=== PATIENT | male | born 1970 | race Caucasian/White ===

== ENCOUNTER → 2016-12-29 | Outpatient (CLI) | payer OTHER ==
[2016-12-29 10:33] LABS: CHCM 33.8; HCT 48.5 % (39.0-53.0); HDW 2.51; HGB 16.3 gm/dL (13.0-17.5); MCH 30.9 pg (25.0-35.0); MCHC 33.5 g/dL (31.0-37.0); MCV 92.2 fL (80.0-100.0); Mean Platelet Volume 6.9; RBC 5.26 m/uL (4.30-5.90); RDW 12.7 % (11.5-15.5); WBC 8.5 k/uL (3.8-10.6)
== END | disposition home or self-care (01) ==
LOC: LABWHC1 09:44
PROVIDERS: ATTEND Internal Medicine Endocrinology, Diabetes & Metabolism
DX: E29.1 Testicular hypofunction (principal)
CPT/HCPCS: 36415; 84403; 85027

== ENCOUNTER → 2017-01-03 | Outpatient (CLI) | payer OTHER ==
[2017-01-03 08:04] LABS: ALT 68 U/L (21-72); AST 37 U/L (17-59); Alkaline Phosphatase 65 U/L (38-126); Anion Gap 10 mmol/L; Blood Urea Nitrogen 12 mg/dL (9-20); Calcium 9.5 mg/dL (8.4-10.2); Carbon Dioxide 25 mmol/L (22-30); Chloride 107 mmol/L (98-107); Cholesterol 132 mg/dL (<200); Glucose 98 mg/dL (74-99); HDL Cholesterol 41 mg/dL (40-60); Non-African American GFR(MDRD) >60 (>60 ml/min/1.73 sqM); Potassium 4.7 mmol/L (3.5-5.1); Sodium 142 mmol/L (137-145); Total Bilirubin 0.8 mg/dL (0.2-1.3); Total Protein 6.8 g/dL (6.3-8.2); Triglycerides 155 mg/dL (<150)
== END | disposition home or self-care (01) ==
LOC: LABWHC1 07:01
PROVIDERS: ATTEND Family Medicine
DX: Z00.00 Encounter for general adult medical examination without abnormal findings (principal)
CPT/HCPCS: 36415; 80053; 80061

== ENCOUNTER → 2017-03-16 | Outpatient (CLI) | payer OTHER ==
--- NOTE | 2017-03-16 09:34 | CT ---
EXAMINATION TYPE: CT sinus wo con DATE OF EXAM: 03/16/2017 8:44 AM COMPARISON: NONE HISTORY: 46-year-old male complains of chronic sinus drainage and cough. CT DLP: 622 mGycm Automated exposure control for dose reduction was used. TECHNIQUE: Noncontrast axial views of the paranasal sinuses were obtained. Coronal with reconstructio ns performed. FINDINGS: Similar scattered mild mucosal thickening within the bilateral maxillary sinuses. The remaining paran puneet sinuses appear clear. There is no air-fluid level. Reactive alexander- osteogenesis is not seen. There is no destruction of the osseous sanchez of the paranasal sinuses. Mucosal thickening similarly narrows the left maxillary antrum but the osteomeatal complexes are lucas nt. 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 The imaged brain, sella, skull base and orbits are normal in appearance. Mastoid air cells and middle ear cavities are well pneumatized. Reformatted images confirm above findings. IMPRESSION: Overall stable mild chronic maxillary sinus disease.
== END | disposition home or self-care (01) ==
LOC: RADCTMAIN 08:21
PROVIDERS: ATTEND Internal Medicine
DX: J34.89 Other specified disorders of nose and nasal sinuses (principal)
CPT/HCPCS: 70486

== ENCOUNTER → 2017-05-03 | Outpatient (CLI) | payer OTHER ==
[2017-05-03 07:33] LABS: CH 30.7; CHCM 32.6; HCT 53.8 % (39.0-53.0); HDW 2.45; HGB 17.6 gm/dL (13.0-17.5); MCH 30.9 pg (25.0-35.0); MCHC 32.6 g/dL (31.0-37.0); MCV 94.7 fL (80.0-100.0); Mean Platelet Volume 6.7; RBC 5.68 m/uL (4.30-5.90); RDW 13.6 % (11.5-15.5)
== END | disposition home or self-care (01) ==
LOC: LABWHC1 06:57
PROVIDERS: ATTEND Internal Medicine Endocrinology, Diabetes & Metabolism
DX: E29.1 Testicular hypofunction (principal)
CPT/HCPCS: 36415; 84403; 85027

== ENCOUNTER → 2017-09-04 | Outpatient (CLI) | payer OTHER ==
[2017-09-04 17:41] LABS: CH 31.9; CHCM 34.3; HCT 52.2 % (39.0-53.0); HDW 2.44; HGB 17.5 gm/dL (13.0-17.5); MCH 31.4 pg (25.0-35.0); MCHC 33.6 g/dL (31.0-37.0); MCV 93.4 fL (80.0-100.0); Mean Platelet Volume 7.1; RBC 5.59 m/uL (4.30-5.90); RDW 14.9 % (11.5-15.5); WBC 8.1 k/uL (3.8-10.6)
== END | disposition home or self-care (01) ==
LOC: LABWHC1 17:24
PROVIDERS: ATTEND Internal Medicine Endocrinology, Diabetes & Metabolism
DX: E29.1 Testicular hypofunction (principal)
CPT/HCPCS: 36415; 84153; 84403; 85027

== ENCOUNTER → 2017-09-14 | Outpatient (CLI) | payer OTHER | END | disposition home or self-care (01) | LOC: LABWHC1 07:05 | PROVIDERS: ATTEND Family Medicine | DX: R97.20 Elevated prostate specific antigen [PSA] (principal) | CPT/HCPCS: 36415; 84153; 84154 ==

== ENCOUNTER → 2018-01-12 | Outpatient (CLI) | payer OTHER ==
[2018-01-12 16:59] LABS: HCT 49.3 % (39.0-53.0); HGB 15.3 gm/dL (13.0-17.5); MCHC 31.1 g/dL (31.0-37.0); MCV 96.4 fL (80.0-100.0); Mean Platelet Volume 6.9; Platelet Count 260 k/uL (150-450); RBC 5.11 m/uL (4.30-5.90); RDW 13.7 % (11.5-15.5); WBC 8.4 k/uL (3.8-10.6)
== END | disposition home or self-care (01) ==
LOC: LABWHC1 16:18
PROVIDERS: ATTEND Internal Medicine Endocrinology, Diabetes & Metabolism
DX: E29.1 Testicular hypofunction (principal)
CPT/HCPCS: 36415; 84153; 84403; 85027

== ENCOUNTER → 2018-06-28 | Outpatient (CLI) | payer OTHER ==
[2018-06-28 17:46] LABS: HCT 52.6 % (39.0-53.0); HGB 17.4 gm/dL (13.0-17.5); MCH 29.8 pg (25.0-35.0); MCV 90.3 fL (80.0-100.0); Platelet Count 268 k/uL (150-450); RBC 5.83 m/uL (4.30-5.90); RDW 12.9 % (11.5-15.5); WBC 10.3 k/uL (3.8-10.6)
== END | disposition home or self-care (01) ==
LOC: LABWHC1 16:52
PROVIDERS: ATTEND Internal Medicine Endocrinology, Diabetes & Metabolism
DX: E29.1 Testicular hypofunction (principal)
CPT/HCPCS: 36415; 84153; 84403; 85027

== ENCOUNTER → 2018-07-07 | Outpatient (CLI) | payer OTHER ==
[2018-07-07 10:11] LABS: T4, Free (Free Thyroxine) 0.8 ng/dL (0.78-2.19)
== END | disposition home or self-care (01) ==
LOC: LABWHC1 08:02
PROVIDERS: ATTEND Internal Medicine Endocrinology, Diabetes & Metabolism
DX: E78.2 Mixed hyperlipidemia (principal); R23.2 Flushing; R42 Dizziness and giddiness; R53.83 Other fatigue
CPT/HCPCS: 36415; 80061; 82533; 84439; 84443; 84481

== ENCOUNTER → 2018-10-16 | Outpatient (CLI) | payer OTHER ==
[2018-10-16 12:12] LABS: HCT 49.5 % (39.0-53.0); HGB 16.7 gm/dL (13.0-17.5); MCHC 33.7 g/dL (31.0-37.0); MCV 92.1 fL (80.0-100.0); Mean Platelet Volume 6.7; Platelet Count 279 k/uL (150-450); RBC 5.37 m/uL (4.30-5.90); RDW 13.7 % (11.5-15.5); WBC 9.7 k/uL (3.8-10.6)
[2018-10-16 12:21] LABS: Appearance,Urine Clear (Clear); Bilirubin,Urine Negative (Negative); Blood,Urine Negative (Negative); Color,Urine Yellow; Glucose,Urine (UA) Negative (Negative); Ketones,Urine Negative (Negative); Leukocyte Esterase,Urine Negative (Negative); Nitrite,Urine Negative (Negative); Protein,Urine Negative (Negative); Specific Gravity,Urine 1.016 (1.001-1.035); Urobilinogen,Urine <2.0 mg/dL (<2.0)
[2018-10-16 12:28] LABS: INR 1.1 (<1.2); Partial Thromboplastin Time 24.1 sec (22.0-30.0); Prothrombin Time 10.5 sec (9.0-12.0)
[2018-10-16 21:47] LABS: Anion Gap 7.8 mmol/L (4.00-12.00); Calcium 9.2 mg/dL (8.7-10.3); Carbon Dioxide 27.2 mmol/L (21.6-31.8)
== END ==
LOC: LABWHC1 11:38
PROVIDERS: ATTEND Orthopaedic Surgery
DX: Z01.812 Encounter for preprocedural laboratory examination (principal); M12.9 Arthropathy, unspecified; D64.9 Anemia, unspecified; N39.0 Urinary tract infection, site not specified
CPT/HCPCS: 36415; 80048; 81003; 85027; 85610; 85730; 87070; 87086

== ENCOUNTER → 2018-12-12 | Outpatient (CLI) | payer OTHER ==
[2018-12-12 12:00] LABS: HCT 53.3 % (39.0-53.0); HGB 17.8 gm/dL (13.0-17.5); MCHC 33.3 g/dL (31.0-37.0); MCV 96.3 fL (80.0-100.0); Mean Platelet Volume 6.5; Platelet Count 288 k/uL (150-450); RBC 5.54 m/uL (4.30-5.90); RDW 13.4 % (11.5-15.5); WBC 8.1 k/uL (3.8-10.6)
== END | disposition home or self-care (01) ==
LOC: LABWHC1 10:58
PROVIDERS: ATTEND Internal Medicine Endocrinology, Diabetes & Metabolism
DX: E29.1 Testicular hypofunction (principal)
CPT/HCPCS: 36415; 84153; 84403; 85027

== ENCOUNTER → 2019-04-10 | Outpatient (CLI) | payer OTHER ==
[2019-04-10 15:51] LABS: HCT 44.3 % (39.0-53.0); HGB 14.8 gm/dL (13.0-17.5); MCH 30.2 pg (25.0-35.0); MCHC 33.4 g/dL (31.0-37.0); MCV 90.3 fL (80.0-100.0); Mean Platelet Volume 6.9; Platelet Count 287 k/uL (150-450); RDW 14.2 % (11.5-15.5); WBC 9.2 k/uL (3.8-10.6)
== END | disposition home or self-care (01) ==
LOC: LABWHC1 15:18
PROVIDERS: ATTEND Internal Medicine Endocrinology, Diabetes & Metabolism
DX: E29.1 Testicular hypofunction (principal)
CPT/HCPCS: 36415; 84153; 84403; 85027

== ENCOUNTER 2019-05-05 14:28 | Emergency (ER) | payer OTHER ==
[2019-05-05 14:58] VITALS: RESP 18; TEMP 98.2
[2019-05-05] MEDS ORDERED: CEPHALEXIN 500 MG CAP PO STA (15:25)
--- NOTE | 2019-05-05 16:03 | XR ---
EXAMINATION TYPE: XR forearm RT DATE OF EXAM: 05/05/2019 COMPARISON: NONE HISTORY: Pain TECHNIQUE: 2 views FINDINGS: There is narrowing of radiocarpal joint space. Elbow joint appears intact. I see no fractur e nor dislocation. IMPRESSION: Osteoarthritis of the wrist joint. No fracture seen. Posterior soft tissue swelling noted over the proximal ulna.
--- NOTE | 2019-05-05 16:04 | XR ---
EXAMINATION TYPE: XR chest 2V DATE OF EXAM: 05/05/2019 COMPARISON: 03/01/2017 HISTORY: Pain TECHNIQUE: Frontal and lateral views of the chest are obtained. FINDINGS: Heart and mediastinum are normal. Lungs are clear of consolidation. There is no pleural ef fusion. Bony thorax is intact. IMPRESSION: No active cardiopulmonary disease. Normal heart. No change.
--- NOTE | 2019-05-05 16:14 | XR ---
EXAMINATION TYPE: XR tibia fibula RT DATE OF EXAM: 05/05/2019 COMPARISON: NONE HISTORY: Leg pain TECHNIQUE: 3 views FINDINGS: Tibia and fibula appear intact. There is old reconstructive surgery at the knee. Ankle join t is anatomic. I see no fracture. IMPRESSION: No acute abnormality of the right lower leg.
[2019-05-05] MEDS ORDERED: ACETAMINOPHEN TAB 325 MG TAB PO STA (16:15)
--- NOTE | 2019-05-05 16:15 | XR ---
EXAMINATION TYPE: XR femur RT DATE OF EXAM: 05/05/2019 COMPARISON: NONE HISTORY: Leg pain TECHNIQUE: 4 views FINDINGS: I see no fracture nor dislocation. Hip joint is intact. Knee joint is intact. IMPRESSION: Negative right femur exam.
--- NOTE | 2019-05-05 16:15 | XR ---
EXAMINATION TYPE: XR cervical spine comp DATE OF EXAM: 05/05/2019 COMPARISON: NONE HISTORY: Pain TECHNIQUE: 5 views FINDINGS: Vertebra have normal alignment. Posterior elements are intact. There is hypertrophic spurri ng anteriorly from C3 to C7. There is narrowing of neural foramina due to multilevel uncovertebral sp ur formation. There are no cervical ribs. IMPRESSION: Multilevel spondylosis and neural foraminal impingement. No fracture.
--- NOTE | 2019-05-05 16:49 | ED ---
General Adult HPI - General Chief complaint: Trauma Stated complaint: Tree fell on pt/ arm and leg injuries Time Seen by Provider: 05/05/19 15:00 Source: patient, RN notes reviewed, old records reviewed Mode of arrival: wheelchair Limitations: no limitations - History of Present Illness Initial comments: 48-year-old male patient presents ED chief complaint was for branch falling on him. Patient reports that he was outside working on his lawnmower when he heard a crack and then a large treatment approximately T4 today and fell down striking his right upper extremity, right lower extremity. Patient denies any trauma to head or neck. Denies any abdominal pain, headache, pain in neck, nausea vomiting or diarrhea. Patient in further difficulty. Patient chief complaint is superficial abrasions on right upper and right lower extremity, pain in right forearm region. Patient denies any other complaints at this time. Systemic: Pt denies fatigue, fever/chills, rash. Pt denies weakness, night sweats, weight loss. Neuro: Pt denies headache, visual disturbances, syncope or pre-syncope. HEENT: Pt denies ocular discharge or irritation, otalgia, rhinorrhea, pharyngitis or notable lymphadenopathy. Cardiopulmonary: Pt denies chest pain, SOB, heart palpitations, dyspnea on exertion. Abdominal/GI: Pt denies abdominal pain, n/v/d. : Pt denies dysuria, burning w/ urination, frequency/urgency. Denies new onset urinary or bowel incontinence. MSK: Pt denies myalgia, loss of strength or function in extremities. Neuro: Pt denies new onset weakness, paresthesias. - Related Data Home Medications Medication Instructions Recorded Confirmed Multivitamins, Thera [Multivitamin 1 each PO DAILY 11/17/14 11/23/15 (formulary)] Osteo Bioflex 400 mg PO DAILY 11/17/14 11/23/15 Meclizine HCl 25 mg PO TID PRN 11/23/15 11/23/15 Metoprolol Succinate (ER) [Toprol 25 mg PO DAILY 11/23/15 11/30/15 Xl] buPROPion SR [Wellbutrin Sr] 150 mg PO TID 11/23/15 11/23/15 Previous Rx's Medication Instructions Recorded Cephalexin [Keflex] 500 mg PO Q12HR 7 Days #14 cap 06/09/19 Allergies Allergy/AdvReac Type Severity Reaction Status Date / Time etodolac [From Lodine] Allergy MUSCLE Verified 05/05/19 14:57 CRAMPS TO BACK OF HEAD AND NECK montelukast sodium Allergy Itching Verified 05/05/19 14:57 [From Singulair] Penicillins Allergy Unknown Verified 05/05/19 14:57 Childhood codeine AdvReac Nausea & Verified 05/05/19 14:57 Vomiting DUST AND POLLEN Allergy Mild SINUS Uncoded 05/05/19 14:57 CONGESTION STRESS TEST DYE Allergy Nausea,LIGHTHEADED,HOT Uncoded 05/05/19 14:57 FLUSHING,CARMONA Review of Systems ROS Statement: Those systems with pertinent positive or pertinent negative responses have been documented in the HPI. ROS Other: All systems not noted in ROS Statement are negative. Past Medical History Past Medical History: Asthma, GERD/Reflux Additional Past Medical History / Comment(s): SEE DR COELHO'S H&P,FREQ DIZZINESS WITH ACTIVITY AND WITHOUT ACTIVITY,KIDNEY STONES,UTI'S,LAST DOSE PREDNISONE 11-23-15 FOR TX 50 DAY COURSE FOR RADS. History of Any Multi-Drug Resistant Organisms: None Reported Past Surgical History: Adenoidectomy, Tonsillectomy Additional Past Surgical History / Comment(s): rt ACL and meniscus repair, lt meniscus repair, hand Past Anesthesia/Blood Transfusion Reactions: Motion Sickness, Postoperative Nausea & Vomiting (PONV) Past Psychological History: ADD/ADHD Smoking Status: Never smoker Past Alcohol Use History: None Reported Past Drug Use History: None Reported - Past Family History Mother Additional Family Medical History / Comment(s): osteoporosis, abd adhesions Father Family Medical History: AFIB Sister(s) Family Medical History: Diabetes Mellitus Additional Family Medical History / Comment(s): paralysis with injury General Exam - General Exam Comments Initial Comments: Constitutional: NAD, AOX3, Pt has pleasant affect. HEENT: NC/AT, trachea midline, neck supple, no lymphadenopathy. Posterior pharynx non erythematous, without exudates. External ears appear normal, without discharge. Mucous membranes moist. Eyes PERRLA, EOM intact. There is no scleral icterus. No pallor noted. Cardiopulmonary: RRR, no murmurs, rubs or gallops, no JVD noted. Lungs CTAB in anterior and posterior dunham. No peripheral edema. Abdominal exam: Abdomen soft and non-distended. Abdomen non-tender to palpation in all 4 quadrants. Bowel sounds active in LLQ. No hepatosplenomegaly. No ecchymosis. No guarding no rigidity. Neuro: CN II-XII intact. No nuchal rigidity. No raccon eyes, no lerma sign, no hemotympanum. No cervical spinal tenderness. MSK: Superficial abrasions noted on right upper and right lower extremity. Mild soft tissue swelling noted on right forearm region. [place] forearm mildly tender to palpation. posterior calf tenderness bilaterally, homans sign negative bilaterally. Posterior tibialis and radial pulse +2 bilaterally. Sensation intact in upper and lower extremities. Full active ROM in upper and lower extremities, 5/5 stregnth. Ulnar gutter splint placed, patient neurovascularly intact after splint placement. Limitations: no limitations Course Vital Signs 05/05/19 14:55 Temperature 98.2 F Pulse Rate 65 Respiratory 18 Rate Blood Pressure 127/86 O2 Sat by Pulse 98 Oximetry Medical Decision Making - Medical Decision Making 48-year-old male patient presents ED chief complaint was for branch falling on him. Patient reports that he was outside working on his lawnmower when he heard a crack and then a large treatment approximately T4 today and fell down striking his right upper extremity, right lower extremity. Patient denies any trauma to head or neck. Examination of the abdominal pain, headache, pain in neck, nausea vomiting or diarrhea. Patient in further difficulty. Patient chief complaint is superficial abrasions on right upper and right lower extremity, pain in right forearm region. Patient denies any other complaints at this time. Patient was sent stable, afebrile. Physical exam displayed: CN II-XII intact. No nuchal rigidity. No raccon eyes, no lerma sign, no hemotympanum. No cervical spinal tenderness. uperficial abrasions noted on right upper and right lower extremity. Mild soft tissue swelling noted on right forearm region. [place] forearm mildly tender to palpation. posterior calf tenderness bilaterally, homans sign negative bilaterally. Posterior tibialis and radial pulse +2 bilaterally. Sensation intact in upper and lower extremities. Full active ROM in upper and lower extremities, 5/5 stregnth. Plain film of chest, femur, tibia-fibula didn't display acute pathology. Forearm plain films displayed mild soft tissue sw elling over proximal ulna. Cervical spine displayed no acute process, multilevel spondylolysis and neural foraminal impingement. No fracture. Abrasions cleaned in ED. Pt placed in R ulnar gutter splint. Pt will f/u with PCP and orthopedic consult in 1-2 days. Patient will be discharged on Keflex. Tetanus up-to-date. Patient returned irritation worsen. Case discussed and patient seen by Dr. Conde. Disposition Clinical Impression: Abrasion, Trauma Disposition: HOME SELF-CARE Condition: Stable Instructions (If sedation given, give patient instructions): Abrasion (ED) Additional Instructions: Patient to adhere to previously discussed treatment plan and will take medication(s) as directed. Patient to follow up with PCP in 1-2 days. Patient to return to ED if symptoms do not improve. Follow-up with primary care provider and orthopedic consult in 1-2 days. Return to ER if worsen anyway. Prescriptions: Cephalexin [Keflex] 500 mg PO Q12HR 7 Days #14 cap Is patient prescribed a controlled substance at d/c from ED?: No Referrals: Isacc Porter MD [Primary Care Provider] - 1-2 days Sivakumar Gillis MD [STAFF PHYSICIAN] - 1-2 days
[2019-05-05 17:27] VITALS: BP 135/79; PULSE 62
== END 2019-05-05 17:24 | disposition home or self-care (01) ==
LOC: EC 14:28
DX: S40.811A Abrasion of right upper arm, initial encounter (principal); S80.811A Abrasion, right lower leg, initial encounter; F90.9 Attention-deficit hyperactivity disorder, unspecified type; Z79.899 Other long term (current) drug therapy; Z88.0 Allergy status to penicillin; Z88.5 Allergy status to narcotic agent; Z88.4 Allergy status to anesthetic agent; Z88.8 Allergy status to other drugs, medicaments and biological substances; Z91.048 Other nonmedicinal substance allergy status; W20.8XXA Other cause of strike by thrown, projected or falling object, initial encounter; Y93.89 Activity, other specified; Y92.89 Other specified places as the place of occurrence of the external cause
CPT/HCPCS: 29125; 71046; 72050; 99284

== ENCOUNTER → 2019-08-23 | Outpatient (CLI) | payer OTHER ==
[2019-08-23 17:43] LABS: HCT 40.9 % (39.0-53.0); HGB 14.3 gm/dL (13.0-17.5); MCH 31.1 pg (25.0-35.0); MCHC 34.8 g/dL (31.0-37.0); MCV 89.3 fL (80.0-100.0); Platelet Count 310 k/uL (150-450); RBC 4.59 m/uL (4.30-5.90); RDW 11.9 % (11.5-15.5); WBC 7.6 k/uL (3.8-10.6)
== END | disposition home or self-care (01) ==
LOC: LABWHC1 16:43
PROVIDERS: ATTEND Internal Medicine Endocrinology, Diabetes & Metabolism
DX: E29.1 Testicular hypofunction (principal)
CPT/HCPCS: 36415; 84153; 84403; 85027

== ENCOUNTER → 2020-02-08 | Outpatient (CLI) | payer OTHER ==
[2020-02-08 11:36] LABS: HCT 44.8 % (39.0-53.0); HGB 15.1 gm/dL (13.0-17.5); MCH 30.7 pg (25.0-35.0); MCHC 33.6 g/dL (31.0-37.0); MCV 91.3 fL (80.0-100.0); Mean Platelet Volume 7.5; Platelet Count 291 k/uL (150-450); RBC 4.91 m/uL (4.30-5.90); RDW 12.7 % (11.5-15.5); WBC 6.5 k/uL (3.8-10.6)
[2020-02-08 17:37] LABS: Luteinizing Hormone 1.4 mIU/mL
== END | disposition home or self-care (01) ==
LOC: LABWHC1 10:04
PROVIDERS: ATTEND Internal Medicine Endocrinology, Diabetes & Metabolism
DX: E29.1 Testicular hypofunction (principal)
CPT/HCPCS: 36415; 83002; 84153; 84403; 85027

== ENCOUNTER → 2020-06-08 | Outpatient (CLI) | payer OTHER ==
[2020-06-08 15:57] LABS: HCT 44.3 % (39.0-53.0); HGB 15.1 gm/dL (13.0-17.5); MCH 31.3 pg (25.0-35.0); MCHC 33.9 g/dL (31.0-37.0); MCV 92.2 fL (80.0-100.0); Mean Platelet Volume 7.4; Platelet Count 264 k/uL (150-450); RBC 4.81 m/uL (4.30-5.90); RDW 12.7 % (11.5-15.5); WBC 8.6 k/uL (3.8-10.6)
[2020-06-09 02:15] LABS: African American GFR (CKD) 101.3 (60.0-200.0); Albumin 4.5 g/dL (3.80-4.90); Albumin/Globulin Ratio 2.65 (1.60-3.17); Anion Gap 3.2 mmol/L (4.00-12.00); Calcium 9.6 mg/dL (8.7-10.3); Carbon Dioxide 28.8 mmol/L (21.6-31.8); Globulin 1.7 g/dL (1.6-3.3); Non-African American GFR(CKD) 87.4 (60.0-200.0); Potassium 4.1 mmol/L (3.5-5.5); Total Bilirubin 0.7 mg/dL (0.3-1.2); Total Protein 6.2 g/dL (6.2-8.2)
== END | disposition home or self-care (01) ==
LOC: LABWHC1 14:55
PROVIDERS: ATTEND Family Medicine
DX: Z00.01 Encounter for general adult medical examination with abnormal findings (principal); E29.1 Testicular hypofunction
CPT/HCPCS: 36415; 80053; 84403; 85027

== ENCOUNTER → 2020-09-22 | Outpatient (CLI) | payer OTHER ==
[2020-09-22 17:19] LABS: Basophils # (A) 0.1 k/uL (0-0.2); Basophils % (A) 1 %; Eosinophils # (A) 0.4 k/uL (0-0.7); Eosinophils % (A) 4 %; Lymphocytes # (A) 1.8 k/uL (1.0-4.8); Lymphocytes % (A) 17 %; MCH 29.7 pg (25.0-35.0); MCHC 31.9 g/dL (31.0-37.0); MCV 93.3 fL (80.0-100.0); Mean Platelet Volume 6.9; Monocytes # (A) 0.6 k/uL (0-1.0); Monocytes % (A) 6 %; Neutrophils % (A) 72 %; Platelet Count 332 k/uL (150-450); RBC 5.04 m/uL (4.30-5.90); RDW 13.3 % (11.5-15.5); WBC 11.1 k/uL (3.8-10.6)
[2020-09-22 17:29] LABS: Total Eosinophil Count 444 #EOS/uL (150-300)
== END | disposition home or self-care (01) ==
LOC: LABWHC1 16:08
PROVIDERS: ATTEND Internal Medicine
DX: J45.50 Severe persistent asthma, uncomplicated (principal)
CPT/HCPCS: 36415; 82785; 85008; 85025

== ENCOUNTER → 2021-05-04 | Outpatient (CLI) | payer OTHER ==
[2021-05-04 23:09] LABS: HCT 43.5 % (39.6-50.0); HGB 14.4 g/dL (13.0-17.0); MCH 30.3 pg (27.0-32.0); MCHC 33.1 g/dL (32.0-37.0); MCV 91.4 fL (80.0-97.0); Mean Platelet Volume 10.1 fL (9.5-12.2); Platelet Count 263 X 10*3/uL (140-440); RBC 4.76 X 10*6/uL (4.40-5.60); RDW 12.8 % (11.5-14.5); WBC 7.59 X 10*3/uL (4.50-10.00)
[2021-05-05 05:57] LABS: Prostate Specific Antigen 4.8 ng/mL (0.0-3.5)
== END | disposition home or self-care (01) ==
LOC: LABWHC1 16:03
PROVIDERS: ATTEND Internal Medicine Endocrinology, Diabetes & Metabolism
DX: E29.1 Testicular hypofunction (principal)
CPT/HCPCS: 36415; 84153; 84403; 85027

== ENCOUNTER → 2021-10-25 | Outpatient (CLI) | payer OTHER ==
[2021-10-25 23:25] LABS: HCT 43.9 % (39.6-50.0); HGB 14.5 g/dL (13.0-17.0); MCH 29.2 pg (27.0-32.0); MCV 88.5 fL (80.0-97.0); Mean Platelet Volume 10.1 fL (9.5-12.2); Platelet Count 277 X 10*3/uL (140-440); RBC 4.96 X 10*6/uL (4.40-5.60); RDW 13.6 % (11.5-14.5); WBC 9.14 X 10*3/uL (4.50-10.00)
[2021-10-26 02:21] LABS: Prostate Specific Antigen 5.7 ng/mL (0.00-3.50)
== END | disposition home or self-care (01) ==
LOC: LABWHC1 14:59
PROVIDERS: ATTEND Internal Medicine Endocrinology, Diabetes & Metabolism
DX: E29.1 Testicular hypofunction (principal)
CPT/HCPCS: 36415; 84153; 84403; 85027

== ENCOUNTER 2021-11-19 05:42 | Inpatient (IN) | payer OTHER ==
[2021-11-19] MEDS ORDERED: ACETAMINOPHEN TAB 500 MG TAB PO STA (06:18)
[2021-11-19] MEDS ORDERED: IBUPROFEN 600 MG TAB PO STA (06:18)
[2021-11-19] MEDS ORDERED: DEXAMETHASONE SOD PHOSPHATE 10 MG/ML 1 ML VIAL IVP STA (06:21)
--- NOTE | 2021-11-19 06:38 | ED ---
General Adult HPI - General Chief complaint: Upper Respiratory Infection Stated complaint: COVID+, Difficulty Breathing Time Seen by Provider: 11/19/21 06:03 Source: patient, RN notes reviewed Mode of arrival: ambulatory Limitations: no limitations - History of Present Illness Initial comments: 51-year-old male with a past medical history of asthma, GERD presents to the emergency room for shortness of breath. Patient states he is COVID-19 positive as of 14 days ago. Patient states his symptoms seem to be worsening. States his cough is getting worse as well as his shortness of breath. States he has headaches and body aches. States he just started getting fevers. He did not take Motrin or Tylenol in the past 6 hours. Patient is not vaccinated. Patient did not receive antibody infusion. He did take ivermectin. Patient has no other complaints at this time including chest pain, abdominal pain, nausea or vomiting, headache, or visual changes. - Related Data Home Medications Medication Instructions Recorded Confirmed Multivitamins, Thera [Multivitamin 1 each PO DAILY 11/17/14 11/23/15 (formulary)] Osteo Bioflex 400 mg PO DAILY 11/17/14 11/23/15 Meclizine HCl 25 mg PO TID PRN 11/23/15 11/23/15 Metoprolol Succinate (ER) [Toprol 25 mg PO DAILY 11/23/15 11/30/15 Xl] buPROPion SR [Wellbutrin Sr] 150 mg PO TID 11/23/15 11/23/15 Previous Rx's Medication Instructions Recorded Cephalexin [Keflex] 500 mg PO Q12HR 7 Days #14 cap 05/05/19 Azithromycin [Zithromax Z-pack (6 250 mg PO DIRECTED #6 tab 11/19/21 tabs)] predniSONE [Deltasone] 60 mg PO DAILY 5 Days #15 tab 11/19/21 Allergies Allergy/AdvReac Type Severity Reaction Status Date / Time etodolac [From Lodine] Allergy MUSCLE Verified 11/19/21 05:55 CRAMPS TO BACK OF HEAD AND NECK montelukast sodium Allergy Itching Verified 11/19/21 05:55 [From Singulair] Penicillins Allergy Unknown Verified 11/19/21 05:55 Childhood codeine AdvReac Nausea & Verified 11/19/21 05:55 Vomiting DUST AND POLLEN Allergy Mild SINUS Uncoded 11/19/21 05:55 CONGESTION STRESS TEST DYE Allergy Nausea,LIGHTHEADED,HOT Uncoded 11/19/21 05:55 FLUSHING,CARMONA Review of Systems ROS Statement: Those systems with pertinent positive or pertinent negative responses have been documented in the HPI. ROS Other: All systems not noted in ROS Statement are negative. Past Medical History Past Medical History: Asthma, GERD/Reflux Additional Past Medical History / Comment(s): SEE DR COELHO'S H&P,FREQ DIZZINESS WITH ACTIVITY AND WITHOUT ACTIVITY,KIDNEY STONES,UTI'S,LAST DOSE PREDNISONE 11-23-15 FOR TX 50 DAY COURSE FOR RADS. History of Any Multi-Drug Resistant Organisms: None Reported Past Surgical History: Adenoidectomy, Tonsillectomy Additional Past Surgical History / Comment(s): rt ACL and meniscus repair, lt meniscus repair, hand Past Anesthesia/Blood Transfusion Reactions: Motion Sickness, Postoperative Nausea & Vomiting (PONV) Past Psychological History: ADD/ADHD Smoking Status: Never smoker Past Alcohol Use History: None Reported Past Drug Use History: None Reported - Past Family History Mother Additional Family Medical History / Comment(s): osteoporosis, abd adhesions Father Family Medical History: AFIB Sister(s) Family Medical History: Diabetes Mellitus Additional Family Medical History / Comment(s): paralysis with injury General Exam Limitations: no limitations General appearance: alert, in no apparent distress Head exam: Present: atraumatic, normocephalic Eye exam: Present: normal appearance, PERRL, EOMI. Absent: scleral icterus, conjunctival injection ENT exam: Present: normal exam, mucous membranes moist Neck exam: Present: normal inspection, full ROM. Absent: tenderness Respiratory exam: Present: normal lung sounds bilaterally. Absent: respiratory distress, wheezes Cardiovascular Exam: Present: normal rhythm, tachycardia, normal heart sounds GI/Abdominal exam: Present: soft, normal bowel sounds. Absent: distended, tenderness Course Vital Signs 11/19/21 11/19/21 11/19/21 05:49 06:57 06:59 Temperature 99.2 F 102.9 F H Pulse Rate 144 H Respiratory 28 H 24 Rate Blood Pressure 100/65 O2 Sat by Pulse 90 L Oximetry 11/19/21 07:36 Temperature Pulse Rate 125 H Respiratory 22 Rate Blood Pressure 114/70 O2 Sat by Pulse 93 L Oximetry EKG Findings - EKG Comments: EKG Findings:: 0606: Sinus tachycardia, ventricular rate 138, NE interval 136, QTC 548 Medical Decision Making - Medical Decision Making Vitals are stable. Patient is 93% on room air. He does not drop below 90. Patient initially tachycardic but this is likely secondary to 102.9 fever. Heart rate did improve to 101. Patient was given fluids and Motrin and Tylenol. CBC did show leukocytosis. This is likely related to steroid use at home however given patient just a fever yesterday and does have a pneumonia on chest x-ray we will cover him with antibiotics. CMP does show transaminitis. COVID- 19 is detected. Chest CTA showed no acute pulmonary embolism. There are bilateral multifocal groundglass opacities greatest in the lower lungs consistent with known COVID-19 infection. Patient reevaluated and feels much better after fever control. His lungs are clear. His heart rate is improved. His ambulatory O2 is 93%. At this time patient is comfortable and stable for discharge home. However if symptoms worsen he was given strict return parameters. Patient is outside of the window for antibody infusion. - Lab Data Result diagrams: 11/19/21 06:53 11/19/21 06:53 Lab Results 11/19/21 11/19/21 11/19/21 Range/Units 06:53 06:53 06:53 WBC 15.1 H (3.8-10.6) k/uL RBC 5.27 (4.30-5.90) m/uL Hgb 16.0 (13.0-17.5) gm/dL Hct 47.0 (39.0-53.0) % MCV 89.1 (80.0-100.0) fL MCH 30.2 (25.0-35.0) pg MCHC 34.0 (31.0-37.0) g/dL RDW 14.2 (11.5-15.5) % Plt Count 229 (150-450) k/uL MPV 7.4 Neutrophils % 92 % Lymphocytes % 3 % Monocytes % 4 % Eosinophils % 0 % Basophils % 0 % Neutrophils # 13.9 H (1.3-7.7) k/uL Lymphocytes # 0.4 L (1.0-4.8) k/uL Monocytes # 0.6 (0-1.0) k/uL Eosinophils # 0.0 (0-0.7) k/uL Basophils # 0.1 (0-0.2) k/uL PT 10.3 (9.0-12.0) sec INR 1.0 (<1.2) APTT 20.7 L (22.0-30.0) sec D-Dimer 0.91 H (<0.60) mg/L FEU Sodium 137 (137-145) mmol/L Potassium 3.8 (3.5-5.1) mmol/L Chloride 102 (98-107) mmol/L Carbon Dioxide 22 (22-30) mmol/L Anion Gap 13 mmol/L BUN 27 H (9-20) mg/dL Creatinine 1.23 (0.66-1.25) mg/dL Est GFR (CKD-EPI)AfAm 78 (>60 ml/min/1.73 sqM) Est GFR (CKD-EPI)NonAf 67 (>60 ml/min/1.73 sqM) Glucose 114 H (74-99) mg/dL Plasma Lactic Acid Tho (0.7-2.0) mmol/L Calcium 8.6 (8.4-10.2) mg/dL Magnesium 2.1 (1.6-2.3) mg/dL Total Bilirubin 0.9 (0.2-1.3) mg/dL AST 162 H (17-59) U/L ALT 177 H (4-49) U/L Alkaline Phosphatase 170 H (38-126) U/L Lactate Dehydrogenase 1329 H (313-618) U/L C-Reactive Protein 6.9 H (<1.0) mg/dL Total Protein 6.3 (6.3-8.2) g/dL Albumin 3.5 (3.5-5.0) g/dL Coronavirus (PCR) (Not Detectd) 11/19/21 11/19/21 Range/Units 06:53 06:53 WBC (3.8-10.6) k/uL RBC (4.30-5.90) m/uL Hgb (13.0-17.5) gm/dL Hct (39.0-53.0) % MCV (80.0-100.0) fL MCH (25.0-35.0) pg MCHC (31.0-37.0) g/dL RDW (11.5-15.5) % Plt Count (150-450) k/uL MPV Neutrophils % % Lymphocytes % % Monocytes % % Eosinophils % % Basophils % % Neutrophils # (1.3-7.7) k/uL Lymphocytes # (1.0-4.8) k/uL Monocytes # (0-1.0) k/uL Eosinophils # (0-0.7) k/uL Basophils # (0-0.2) k/uL PT (9.0-12.0) sec INR (<1.2) APTT (22.0-30.0) sec D-Dimer (<0.60) mg/L FEU Sodium (137-145) mmol/L Potassium (3.5-5.1) mmol/L Chloride (98-107) mmol/L Carbon Dioxide (22-30) mmol/L Anion Gap mmol/L BUN (9-20) mg/dL Creatinine (0.66-1.25) mg/dL Est GFR (CKD-EPI)AfAm (>60 ml/min/1.73 sqM) Est GFR (CKD-EPI)NonAf (>60 ml/min/1.73 sqM) Glucose (74-99) mg/dL Plasma Lactic Acid Tho 1.6 (0.7-2.0) mmol/L Calcium (8.4-10.2) mg/dL Magnesium (1.6-2.3) mg/dL Total Bilirubin (0.2-1.3) mg/dL AST (17-59) U/L ALT (4-49) U/L Alkaline Phosphatase (38-126) U/L Lactate Dehydrogenase (313-618) U/L C-Reactive Protein (<1.0) mg/dL Total Protein (6.3-8.2) g/dL Albumin (3.5-5.0) g/dL Coronavirus (PCR) Detected A (Not Detectd) Disposition Clinical Impression: COVID-19 Disposition: HOME SELF-CARE Condition: Good Instructions (If sedation given, give patient instructions): Coronavirus Disease 2019 (COVID-19) Additional Instructions: Take antibiotic as directed. Take steroid prescription as directed starting tomorrow. Follow-up with primary care. Return to the emergency room for any worsening symptoms. Prescriptions: predniSONE [Deltasone] 60 mg PO DAILY 5 Days #15 tab Azithromycin [Zithromax Z-pack (6 tabs)] 250 mg PO DIRECTED #6 tab Is patient prescribed a controlled substance at d/c from ED?: No Referrals: Isacc Porter MD [Primary Care Provider] - 1-2 days Time of Disposition: 09:11
[2021-11-19] MEDS ORDERED: SODIUM CHLORIDE 0.9% 1,000 ML IV STA (07:05)
[2021-11-19 07:06] LABS: Basophils # (A) 0.1 k/uL (0-0.2); Basophils % (A) 0 %; Eosinophils % (A) 0 %; Lymphocytes # (A) 0.4 k/uL (1.0-4.8); Lymphocytes % (A) 3 %; MCH 30.2 pg (25.0-35.0); MCV 89.1 fL (80.0-100.0); Mean Platelet Volume 7.4; Monocytes # (A) 0.6 k/uL (0-1.0); Monocytes % (A) 4 %; Neutrophils # (A) 13.9 k/uL (1.3-7.7); Neutrophils % (A) 92 %; Platelet Count 229 k/uL (150-450); RBC 5.27 m/uL (4.30-5.90); RDW 14.2 % (11.5-15.5); WBC 15.1 k/uL (3.8-10.6)
--- NOTE | 2021-11-19 07:07 | XR ---
EXAMINATION TYPE: XR chest 1V portable DATE OF EXAM: 11/19/2021 COMPARISON: Chest x-ray May 05, 2019. Chest x-ray September 22, 2020. HISTORY: Cough and shortness of breath. COVID +2 weeks ago. TECHNIQUE: Single AP portable frontal upright view of the chest is obtained. FINDINGS: There are new bilateral multifocal increased opacities greatest in the mid to lower lungs. The cardiac silhouette size remains within normal limits. The osseous structures are intact. IMPRESSION: New bilateral multifocal increased opacities consistent with covid-19 infection are pres ent.
[2021-11-19 07:29] LABS: Prothrombin Time 10.3 sec (9.0-12.0)
[2021-11-19 07:43] LABS: Albumin 3.5 g/dL (3.5-5.0); C Reactive Protein 6.9 mg/dL (<1.0); Calcium 8.6 mg/dL (8.4-10.2); Magnesium 2.1 mg/dL (1.6-2.3); Potassium 3.8 mmol/L (3.5-5.1); Total Bilirubin 0.9 mg/dL (0.2-1.3); Total Protein 6.3 g/dL (6.3-8.2)
[2021-11-19 08:04] LABS: Partial Thromboplastin Time 20.7 sec (22.0-30.0)
--- NOTE | 2021-11-19 08:42 | CT ---
EXAMINATION TYPE: CT chest angio for PE DATE OF EXAM: 11/19/2021 COMPARISON: Chest x-ray earlier today. HISTORY: Shortness of breath, covid. CT DLP: 521.4 mGycm. Automated Exposure Control for Dose Reduction was Utilized. CONTRAST: CTA scan of the thorax is performed with IV Contrast, patient injected with 100ml mL of Isovue 370, p ulmonary embolism protocol. MIP Images are created on CT scanner and reviewed. FINDINGS: LUNGS: Corresponding to chest x-ray earlier today there are bilateral multifocal areas of groundglass opacity more confluent in appearance in the right greater than left lower lobes. No pleural effusion or pneumothorax seen bilaterally. No pneumothorax seen bilaterally. MEDIASTINUM: Suboptimal study with most dense contrast in the SVC. There is suboptimal bolus with het erogeneity but no convincing CT evidence for acute pulmonary embolism. Enhancement of the aorta witho ut aneurysm or dissection. There are persistent prominent bilateral hilar lymph nodes. No significa nt pericardial effusion is seen. Heart size upper limits of normal OTHER: [id number] size hiatal hernia. Mild multilevel spurring greatest near the thoracolumbar junction IMPRESSION: Suboptimal study without acute pulmonary embolism. Bilateral multifocal ground glass opac ities greatest in the lower lungs consistent with known covid-19 infection.
[2021-11-19] MEDS ORDERED: cefTRIAXone IN SWFI 1,000 MG/10 ML SYRINGE IVP STA (09:13)
[2021-11-19] MEDS ORDERED: NITROGLYCERIN SL TABS 0.4 MG TAB SUBLINGUAL PRN (11:27)
[2021-11-19] MEDS ORDERED: ASPIRIN 81 MG PO STA (11:27)
[2021-11-19] MEDS ORDERED: IPRATROPIUM-ALBUTEROL 3 ML NEB INHALATION STA (11:42)
[2021-11-19] MEDS ORDERED: IPRATROPIUM-ALBUTEROL 3 ML NEB INHALATION PRN (11:42)
[2021-11-19] MEDS ORDERED: AZITHROMYCIN 500 MG in SODIUM CHLORIDE 0.9% 250 ML IVPB STA (11:43)
[2021-11-19] MEDS ORDERED: ACETAMINOPHEN TAB 500 MG TAB PO PRN (11:45)
[2021-11-19] MEDS ORDERED: ALBUTEROL HFA INHALER INHALATION SCH (12:00)
[2021-11-19] MEDS ORDERED: TESTOSTERONE CYPIONATE 200 MG/ML 1ML VIAL IM SCH (12:15)
[2021-11-19 13:38] VITALS: RESP 18; TEMP 98.1
--- NOTE | 2021-11-19 14:29 | P.HPIM ---
History of Present Illness H&P Date: 11/19/21 Chief Complaint: dyspnea 51-year-old unvaccinated male patient with Covid 19, asthma, history of hypertension and hyperlipidemia presented with dyspnea. Patient says he was d iagnosed with coronavirus 14 days ago and said the symptoms seem to be worsening, with worsening cough and dyspnea on exertion. He is also been febrile, which has been relieved with Motrin and Tylenol. Patient has been taking ivermectin and did not receive any monoclonal antibody. He is also been on steroids at home. Patient seemed to recover to 94% on room air, however, ER had concerns over EKG which demonstrated T-wave inversions in inferior and lateral leads which was taken at a tachycardic rate of 138. Initial troponin was indeterminate at 0.031. Chest x-ray did show bilateral multifocal opacities consistent Covid 19. CT of the chest ruled out pulmonary embolism. Patient reports fevers, chills, dyspnea, cough. Patient denies nausea, vomiting, chest pain, palpitations, syncope, presyncope, abdominal pain, diarrhea, constipation, dysuria, dyschezia, numbness/weakness of extremities. All Systems reviewed and pertinent positives and negatives noted in HPI, all other symptoms are negative Patient is afebrile, 127/83, heart rate 98, 93% on room air. In general he is in no acute distress. Normocephalic, atraumatic, moist mucous membranes. Lungs sounds have coarse crackles bilaterally, no wheezing, symmetric chest expansion. Heart sounds do not have any murmurs or clicks, regular rate and rhythm. No tenderness to palpation of the abdomen, soft, normal bowel sounds. No suprapubic tenderness, no CVA tenderness. Patient is moving all extremities and appears to be nonfocal, alert and oriented 3. Patient is cooperative, euthymic mood. Patient's white blood cell count was elevated at 15.1, d-dimer was 0.91, AST and ALT were elevated, lactate dehydrogenase was elevated, CRP was elevated. Covid was positive. Influenza a/V was negative. Second troponin returned less than 0.012. Imaging reviewed and reported above in HPI. I did review patient's EKG from to day and compared it to the one from 2014 and appears these T-wave inversions were present before. Assessment/plan: Covid pneumonitis Given the patient is not experiencing chest pain, palpitations, and has had 2 negative troponins, ACS is highly unlikely for this patient, and he does not meet indication for inpatient admission for Covid at this time. Therefore, counseled the patient on alarm signs and symptoms including worsening hypoxia, chest pain, palpitations, and recommended that he return home, but to return to the emergency room if any alarm symptoms present themselves. He will follow-up with his primary care doctor within 1 week. I did prescribe dexamethasone 6 mg daily to be completed across 10 days. I did recommend he discontinue ivermectin. I counseled the patient on taking his pulse oximetry at home. I also counseled him on improving oxygenation by self- proning. Past Medical History Past Medical History: Asthma, GERD/Reflux Additional Past Medical History / Comment(s): SEE DR COELHO'S H&P,FREQ DIZZINESS WITH ACTIVITY AND WITHOUT ACTIVITY,KIDNEY STONES,UTI'S,LAST DOSE P REDNISONE 11-23-15 FOR TX 50 DAY COURSE FOR RADS. History of Any Multi-Drug Resistant Organisms: None Reported Past Surgical History: Adenoidectomy, Tonsillectomy Additional Past Surgical History / Comment(s): rt ACL and meniscus repair, lt meniscus repair, hand Past Anesthesia/Blood Transfusion Reactions: Motion Sickness, Postoperative Nausea & Vomiting (PONV) Past Psychological History: ADD/ADHD Smoking Status: Never smoker Past Alcohol Use History: None Reported Past Drug Use History: None Reported - Past Family History Mother Additional Family Medical History / Comment(s): osteoporosis, abd adhesions Father Family Medical History: AFIB Sister(s) Family Medical History: Diabetes Mellitus Additional Family Medical History / Comment(s): paralysis with injury Medications and Allergies Home Medications Medication Instructions Recorded Confirmed Type buPROPion SR [Wellbutrin SR] 150 mg PO BID 11/23/15 11/19/21 History Albuterol Inhaler [Ventolin Hfa 2 puff INHALATION RT-QID PRN #1 inh 11/19/21 Rx Inhaler] Atorvastatin Calcium [Lipitor] 20 mg PO DAILY 11/19/21 11/19/21 History Azithromycin [Zithromax Z-pack (6 250 mg PO DIRECTED #6 tab 11/19/21 Rx tabs)] Metoprolol Succinate [Toprol XL] 50 mg PO DAILY 11/19/21 11/19/21 History Multivit-Min/FA/Lycopen/Lutein 1 tab PO DAILY 11/19/21 11/19/21 History [Centrum Silver Men Tablet] Omeprazole 40 mg PO BID 11/19/21 11/19/21 History Testosterone Cypionate 100 mg IM Q14D 11/19/21 11/19/21 History [Depo-Testosterone] dexAMETHasone ORAL [Hexadrol] 6 mg PO DAILY #30 tablet 11/19/21 Rx Allergies Allergy/AdvReac Type Severity Reaction Status Date / Time etodolac [From Lodine] Allergy MUSCLE Verified 11/19/21 11:51 CRAMPS TO BACK OF HEAD AND NECK montelukast sodium Allergy Itching Verified 11/19/21 11:51 [From Singulair] Penicillins Allergy Unknown Verified 11/19/21 11:51 Childhood codeine AdvReac Nausea & Verified 11/19/21 11:51 Vomiting DUST AND POLLEN Allergy Mild SINUS Uncoded 11/19/21 05:55 CONGESTION STRESS TEST DYE Allergy Nausea,LIGHTHEADED,HOT Uncoded 11/19/21 05:55 FLUSHING,CARMONA Physical Exam Osteopathic Statement: *. No significant issues noted on an osteopathic structural exam other than those noted in the History and Physical/Consult. Vitals: Vital Signs Temp Pulse Resp BP Pulse Ox 11/19/21 13:37 98.1 F 98 18 127/83 93 L 11/19/21 11:35 98 20 138/90 94 L 11/19/21 09:30 97.9 F 98 20 130/75 92 L 11/19/21 07:36 125 H 22 114/70 93 L 11/19/21 06:59 24 11/19/21 06:57 102.9 F H 11/19/21 05:49 99.2 F 144 H 28 H 100/65 90 L Intake and Output 11/18/21 11/19/21 11/19/21 22:59 06:59 14:59 Other: Weight 113.398 kg Results CBC & Chem 7: 11/19/21 06:53 11/19/21 06:53 Labs: Abnormal Lab Results - Last 24 Hours (Table) 11/19/21 11/19/21 11/19/21 Range/Units 06:53 06:53 06:53 WBC 15.1 H (3.8-10.6) k/uL Neutrophils # 13.9 H (1.3-7.7) k/uL Lymphocytes # 0.4 L (1.0-4.8) k/uL APTT 20.7 L (22.0-30.0) sec D-Dimer 0.91 H (<0.60) mg/L FEU BUN 27 H (9-20) mg/dL Glucose 114 H (74-99) mg/dL AST 162 H (17-59) U/L ALT 177 H (4-49) U/L Alkaline Phosphatase 170 H (38-126) U/L Lactate Dehydrogenase 1329 H (313-618) U/L C-Reactive Protein 6.9 H (<1.0) mg/dL Procalcitonin (0.02-0.09) ng/mL Coronavirus (PCR) (Not Detectd) 11/19/21 11/19/21 Range/Units 06:53 06:53 WBC (3.8-10.6) k/uL Neutrophils # (1.3-7.7) k/uL Lymphocytes # (1.0-4.8) k/uL APTT (22.0-30.0) sec D-Dimer (<0.60) mg/L FEU BUN (9-20) mg/dL Glucose (74-99) mg/dL AST (17-59) U/L ALT (4-49) U/L Alkaline Phosphatase (38-126) U/L Lactate Dehydrogenase (313-618) U/L C-Reactive Protein (<1.0) mg/dL Procalcitonin 0.28 H (0.02-0.09) ng/mL Coronavirus (PCR) Detected A (Not Detectd)
--- NOTE | 2021-11-19 14:30 | P.DS ---
Providers Date of admission: 11/19/21 12:07 Expected date of discharge: 11/19/21 Attending physician: Buster Liang Primary care physician: [facility] [place] [facility] Course: Covid pneumonitis Given the patient is not experiencing chest pain, palpitations, and has had 2 negative troponins, ACS is highly unlikely for this patient, and he does not meet indication for inpatient admission for Covid at this time. Therefore, counseled the patient on alarm signs and symptoms including worsening hypoxia, chest pain, palpitations, and recommended that he return home, but to return to the emergency room if any alarm symptoms present themselves. He will follow-up with his primary care doctor within 1 week. I did prescribe dexamethasone 6 mg daily to be completed across 10 days. I did recommend he discontinue ivermectin. I counseled the patient on taking his pulse oximetry at home. I also counseled him on improving oxygenation by self- proning. Patient Condition at Discharge: Good Plan - Discharge Summary New Discharge Prescriptions: New Azithromycin [Zithromax Z-pack (6 tabs)] 250 mg PO DIRECTED #6 tab Albuterol Inhaler [Ventolin Hfa Inhaler] 2 puff INHALATION RT-QID PRN #1 inh PRN Reason: Dyspnea dexAMETHasone ORAL [Hexadrol] 6 mg PO DAILY #30 tablet Continue buPROPion SR [Wellbutrin SR] 150 mg PO BID Metoprolol Succinate [Toprol XL] 50 mg PO DAILY Multivit-Min/FA/Lycopen/Lutein [Centrum Silver Men Tablet] 1 tab PO DAILY Testosterone Cypionate [Depo-Testosterone] 100 mg IM Q14D Omeprazole 40 mg PO BID Atorvastatin Calcium [Lipitor] 20 mg PO DAILY Discontinued Clarithromycin [Clarithromycin ER] 500 mg PO BID predniSONE 10 mg PO BID Ivermectin 69 mg PO DAILY Discharge Medication List buPROPion SR [Wellbutrin SR] 150 mg PO BID 11/23/15 [History] Albuterol Inhaler [Ventolin Hfa Inhaler] 2 puff INHALATION RT-QID PRN #1 inh [Rx] Atorvastatin Calcium [Lipitor] 20 mg PO DAILY 11/19/21 [History] Azithromycin [Zithromax Z-pack (6 tabs)] 250 mg PO DIRECTED #6 tab 11/19/21 [Rx] Metoprolol Succinate [Toprol XL] 50 mg PO DAILY 11/19/21 [History] Multivit-Min/FA/Lycopen/Lutein [Centrum Silver Men Tablet] 1 tab PO DAILY 11/19/21 [History] Omeprazole 40 mg PO BID 11/19/21 [History] Testosterone Cypionate [Depo-Testosterone] 100 mg IM Q14D 11/19/21 [History] dexAMETHasone ORAL [Hexadrol] 6 mg PO DAILY #30 tablet 11/19/21 [Rx] Follow up Appointment(s)/Referral(s): Isacc Porter MD [Primary Care Provider] - 1-2 days Patient Instructions/Handouts: Coronavirus Disease 2019 (COVID-19) Activity/Diet/Wound Care/Special Instructions: Take antibiotic as directed. Take steroid prescription as directed starting tomorrow. Follow-up with primary care. Return to the emergency room for any worsening symptoms. Discharge Disposition: HOME SELF-CARE
[2021-11-19 14:48] VITALS: BP 125/81; PULSE 94
[2021-11-19] MEDS ORDERED: IPRATROPIUM-ALBUTEROL 3 ML NEB INHALATION SCH (18:00)
[2021-11-19] MEDS ORDERED: buPROPion SR 150 MG TABLET.ER PO SCH (21:00)
[2021-11-20] MEDS ORDERED: DEXAMETHASONE SOD PHOSPHATE 10 MG/ML 1 ML VIAL IVP SCH (09:00)
[2021-11-20] MEDS ORDERED: ASPIRIN 81 MG PO SCH (09:00)
[2021-11-20] MEDS ORDERED: ASPIRIN 325 MG TAB PO SCH (09:00)
[2021-11-20] MEDS ORDERED: cefTRIAXone IN SWFI 1,000 MG/10 ML SYRINGE IVP SCH (09:00)
[2021-11-20] MEDS ORDERED: AZITHROMYCIN 500 MG in SODIUM CHLORIDE 0.9% 250 ML IVPB SCH (09:00)
[2021-11-20] MEDS ORDERED: METOPROLOL SUCCINATE (ER) 50 MG TAB.ER.24H PO SCH (09:00)
[2021-11-20] MEDS ORDERED: MULTIVITAMINS, THERA 1 EACH TAB PO SCH (09:00)
[2021-11-20] MEDS ORDERED: ATORVASTATIN 20 MG TAB PO SCH (09:00)
== END 2021-11-19 17:17 | disposition home or self-care (01) | DRG 177 ==
LOC: EC 05:42 → 3SCARD 12:07
PROVIDERS: ADMIT Hospitalist; ATTEND Hospitalist
DX: U07.1 COVID-19 (principal); J12.82 Pneumonia due to coronavirus disease 2019; E78.5 Hyperlipidemia, unspecified; F90.9 Attention-deficit hyperactivity disorder, unspecified type; J30.89 Other allergic rhinitis; T38.0X5A Adverse effect of glucocorticoids and synthetic analogues, initial encounter; I10 Essential (primary) hypertension; R00.0 Tachycardia, unspecified; J45.909 Unspecified asthma, uncomplicated; Z79.899 Other long term (current) drug therapy; Z82.62 Family history of osteoporosis; Z83.3 Family history of diabetes mellitus; Z88.0 Allergy status to penicillin; Z88.5 Allergy status to narcotic agent; Z87.440 Personal history of urinary (tract) infections; Z87.442 Personal history of urinary calculi; X58.XXXA Exposure to other specified factors, initial encounter
CPT/HCPCS: 36415; 71045; 71275; 80053; 82728; 83605; 83615; 83735; 84145; 84484; 85025; 85379; 85610; 85730; 86140; 87502; 87635; 93005; 93308; 96361; 96374; 99285

== ENCOUNTER → 2022-07-04 | Outpatient (CLI) | payer OTHER ==
[2022-07-04 22:12] LABS: HCT 43.5 % (39.6-50.0); HGB 14.8 g/dL (13.0-17.0); MCH 29.8 pg (27.0-32.0); MCV 87.5 fL (80.0-97.0); Mean Platelet Volume 10.4 fL (9.5-12.2); NRBC Per 100 WBC 0 /100 WBCS (0.0-0.0); Platelet Count 255 X 10*3/uL (140-440); RBC 4.97 X 10*6/uL (4.40-5.60); RDW 12.8 % (11.5-14.5); WBC 8.87 X 10*3/uL (4.50-10.00)
[2022-07-04 23:05] LABS: Prostate Specific Antigen 6.2 ng/mL (0.00-3.50)
== END | disposition home or self-care (01) ==
LOC: LABWHC1 16:16
PROVIDERS: ATTEND Internal Medicine Endocrinology, Diabetes & Metabolism
DX: E29.1 Testicular hypofunction (principal)
CPT/HCPCS: 36415; 84153; 84403; 85027

== ENCOUNTER → 2022-10-01 | Outpatient (CLI) | payer OTHER ==
[2022-10-02 03:53] LABS: HCT 47.4 % (39.0-53.0); MCH 30.9 pg (25.0-35.0); MCHC 33.7 g/dL (31.0-37.0); MCV 91.5 fL (80.0-100.0); Mean Platelet Volume 9.6; Platelet Count 246 k/uL (150-450); RBC 5.18 m/uL (4.30-5.90); RDW 12.7 % (11.5-15.5); WBC 5.3 k/uL (3.8-10.6)
[2022-10-02 09:19] LABS: ALT 33 U/L (10-49); AST 31 U/L (14-35); African American GFR (CKD) 112.6 (60.0-200.0); Albumin 4.5 g/dL (3.8-4.9); Albumin/Globulin Ratio 2.14 (1.60-3.17); Alkaline Phosphatase 72 U/L (41-126); BUN/Creat Ratio 16.56 Ratio (12.00-20.00); Blood Urea Nitrogen 14.9 mg/dL (9.0-27.0); Calcium 9.1 mg/dL (8.7-10.3); Carbon Dioxide 25.1 mmol/L (20.0-27.5); Chloride 106 mmol/L (96-109); Chol/HDL Ratio 3.78 Ratio; Globulin 2.1 g/dL (1.6-3.3); Glucose 94 mg/dL (70-110); LDL Cholesterol,Calculated 85.9 mg/dL (0.0-131.0); Non-African American GFR(CKD) 97.2 (60.0-200.0); Potassium 4.2 mmol/L (3.5-5.5); Sodium 140 mmol/L (135-145); Total Protein 6.6 g/dL (6.2-8.2); VLDL Calculation 17.82 mg/dL (5.00-40.00)
== END | disposition home or self-care (01) ==
LOC: LABWHC1 11:07
PROVIDERS: ATTEND Family Medicine
DX: Z00.01 Encounter for general adult medical examination with abnormal findings (principal)
CPT/HCPCS: 36415; 80053; 80061; 85027

== ENCOUNTER → 2022-10-24 | Outpatient (CLI) | payer OTHER ==
[2022-10-24 23:50] LABS: HCT 46.6 % (39.6-50.0); HGB 15.3 g/dL (13.0-17.0); MCH 29.3 pg (27.0-32.0); MCHC 32.8 g/dL (32.0-37.0); MCV 89.3 fL (80.0-97.0); NRBC Per 100 WBC 0 /100 WBCS (0.0-0.0); Platelet Count 272 X 10*3/uL (140-440); RBC 5.22 X 10*6/uL (4.40-5.60); WBC 8.32 X 10*3/uL (4.50-10.00)
[2022-10-25 00:41] LABS: African American GFR (CKD) 95.7 (60.0-200.0); Albumin 4.5 g/dL (3.8-4.9); Albumin/Globulin Ratio 2.83 (1.60-3.17); Anion Gap 12.3 mmol/L (10.00-18.00); BUN/Creat Ratio 14.27 Ratio (12.00-20.00); Blood Urea Nitrogen 14.7 mg/dL (9.0-27.0); Calcium 9.7 mg/dL (8.7-10.3); Carbon Dioxide 24.1 mmol/L (20.0-27.5); Globulin 1.6 g/dL (1.6-3.3); Non-African American GFR(CKD) 82.5 (60.0-200.0); Potassium 3.8 mmol/L (3.5-5.5); Prostate Specific Antigen 7.4 ng/mL (0.00-3.50); Total Bilirubin 0.4 mg/dL (0.30-1.20); Total Protein 6.1 g/dL (6.2-8.2)
== END | disposition home or self-care (01) ==
LOC: LABWHC1 15:43
PROVIDERS: ATTEND Internal Medicine Endocrinology, Diabetes & Metabolism
DX: E29.1 Testicular hypofunction (principal)
CPT/HCPCS: 36415; 80053; 84153; 84403; 85027

== ENCOUNTER → 2023-02-23 | Outpatient (CLI) | payer BC ==
[2023-02-24 00:20] LABS: Prostate Specific Antigen 7.1 ng/mL (0.00-3.50)
[2023-02-24 01:23] LABS: HCT 48.3 % (39.6-50.0); HGB 15.7 g/dL (13.0-17.0); MCH 29.1 pg (27.0-32.0); MCHC 32.5 g/dL (32.0-37.0); MCV 89.6 fL (80.0-97.0); Mean Platelet Volume 9.7 fL (9.5-12.2); NRBC Per 100 WBC 0 /100 WBCS (0.0-0.0); Platelet Count 301 X 10*3/uL (140-440); RBC 5.39 X 10*6/uL (4.40-5.60); WBC 15.28 X 10*3/uL (4.50-10.00)
== END | disposition home or self-care (01) ==
LOC: LABWHC1 15:56
PROVIDERS: ATTEND Internal Medicine Endocrinology, Diabetes & Metabolism
DX: E29.1 Testicular hypofunction (principal)
CPT/HCPCS: 36415; 84153; 84403; 84443; 85027

== ENCOUNTER → 2024-01-19 | Outpatient (CLI) | payer BC ==
[2024-01-19 18:20] LABS: HCT 44.5 % (39.6-50.0); HGB 15.2 g/dL (13.0-17.0); MCH 29.7 pg (27.0-32.0); MCHC 34.2 g/dL (32.0-37.0); MCV 87.1 FL (80.0-97.0); Mean Platelet Volume 9.6 FL (9.5-12.2); NRBC Per 100 WBC 0 X 10*3/uL (0.00-0.01); Platelet Count 273 X 10*3/uL (140-440); RBC 5.11 X 10*6/uL (4.40-5.60); RDW 13.1 % (11.5-14.5); WBC 7.93 X 10*3/uL (4.50-10.00)
[2024-01-20 03:24] LABS: Prostate Specific Antigen 7.31 ng/mL (0.000-3.500)
== END | disposition home or self-care (01) ==
LOC: LABWHC1 15:49
PROVIDERS: ATTEND Internal Medicine Endocrinology, Diabetes & Metabolism
DX: E29.1 Testicular hypofunction (principal)
CPT/HCPCS: 36415; 84153; 84403; 85027

== ENCOUNTER → 2024-08-24 | Outpatient (CLI) | payer BC ==
[2024-08-24 13:28] LABS: HCT 45.6 % (39.6-50.0); MCH 29.7 pg (27.0-32.0); MCHC 32.9 g/dL (32.0-37.0); MCV 90.3 FL (80.0-97.0); NRBC Per 100 WBC 0 X 10*3/uL (0.00-0.01); Platelet Count 235 X 10*3/uL (140-440); RBC 5.05 X 10*6/uL (4.40-5.60); WBC 5.95 X 10*3/uL (4.50-10.00)
[2024-08-24 13:58] LABS: ALT 29 U/L (10-49); AST 25 U/L (14-35); Albumin 4.4 g/dL (3.8-4.9); Albumin/Globulin Ratio 2.32 Ratio (1.60-3.17); Alkaline Phosphatase 67 U/L (41-126); Blood Urea Nitrogen 18.7 mg/dL (9.0-27.0); Calcium 9.3 mg/dL (8.7-10.3); Carbon Dioxide 24.8 mmol/L (21.6-31.8); Chloride 106 mmol/L (96-109); Chol/HDL Ratio 3.93 Ratio; Globulin 1.9 g/dL (1.6-3.3); Glucose 109 mg/dL (70-110); LDL Cholesterol,Calculated 89.1 mg/dL (0.0-131.0); Potassium 4.1 mmol/L (3.5-5.5); Prostate Specific Antigen 8.06 ng/mL (0.000-3.500); Sodium 141 mmol/L (135-145); Total Bilirubin 0.6 mg/dL (0.3-1.2); Total Protein 6.3 g/dL (6.2-8.2)
== END | disposition home or self-care (01) ==
LOC: LABWHC1 07:59
PROVIDERS: ATTEND Family Medicine
DX: Z00.01 Encounter for general adult medical examination with abnormal findings (principal); R79.89 Other specified abnormal findings of blood chemistry
CPT/HCPCS: 36415; 80053; 80061; 84153; 84402; 84403; 85027